=== PATIENT | male | born 1975 | race Caucasian/White ===

== ENCOUNTER 2021-02-17 01:50 | Emergency (ER) | payer SELFPAY ==
--- NOTE | 2021-02-17 02:49 | NUR ---
CALLED TO TRIAGE NOT IN WAITING ROOM
--- NOTE | 2021-02-17 03:00 | NUR ---
CALLED TO TRIAGE NOT IN WAITING ROOM
== END 2021-02-17 05:49 | disposition left against medical advice (07) ==
LOC: ER 01:50
DX: Z53.21 Procedure and treatment not carried out due to patient leaving prior to being seen by health care provider (principal)

== ENCOUNTER 2021-03-02 02:45 | Emergency (ER) | payer OTHER ==
[~2021-03-02] VITALS: Ht 177.8 cm; Wt 72.6 kg
[2021-03-02 02:45] VITALS: BP 120/68
[2021-03-02] MEDS ORDERED: IBUPROFEN 400 MG TABLET ONE (03:19)
[2021-03-02] MEDS ORDERED: IBUPROFEN 400 MG TABLET PO ONE (03:30)
--- NOTE | 2021-03-02 04:00 | NUR ---
RADIOLOGY AT BEDSIDE
[2021-03-02] MEDS ORDERED: IBUP-1957 PO (04:57)
== END 2021-03-02 05:08 | disposition home or self-care (01) ==
LOC: ER 02:50
DX: S63.592A Other specified sprain of left wrist, initial encounter (principal); F17.200 Nicotine dependence, unspecified, uncomplicated; Z88.0 Allergy status to penicillin; Z88.2 Allergy status to sulfonamides; V00.131A Fall from skateboard, initial encounter; Y93.51 Activity, roller skating (inline) and skateboarding; Y92.331 Roller skating rink as the place of occurrence of the external cause; Y99.8 Other external cause status
CPT/HCPCS: 73110